=== PATIENT | female | born 1980 | race Caucasian/White ===

== ENCOUNTER 2019-06-27 16:21 | Emergency (ER) | payer SELFPAY ==
[2019-06-27 16:25] VITALS: TEMP 98.5; BMI 20.3
--- NOTE | 2019-06-27 16:32 | PDOC ---
Attending Attestation - Resident Resident Name: Sierra Rivera - ED Attending Attestation I have performed the following: I have examined & evaluated the patient, The case was reviewed & discussed with the resident, I agree w/resident's findings & plan, Exceptions are as noted - HPI HPI: 06/27/19 17:41 39-year-old 1 para 0 LMP early April, with positive home test, has bleeding and cramping since Tuesday. Prior was terminated electively. Bleeding was heavy on Tuesday but has slowed to a trickle. Pain persists. No other significant medical problems. Specifically, no history of abnormal blood clotting, DVT, PE. - Physicial Exam PE: 06/27/19 17:43 Physical exam reveals stable vital signs. Pelvic exam by Dr. Rivera with my supervision showed that the office was closed, there were no clots or products of conception in the office or the vaginal vault. There was tenderness in the left adnexa. - Medical Decision Making 06/27/19 17:45 Assessment: Threatened AB versus miscarriage versus ectopic . Plan: Pelvic ultrasound shows a 6-1/2-week viable intrauterine , with a large intrauterine fibroid, and a large left ovarian cyst. There was nothing that looked like an ectopic , according to the patient care technician. Full reading is pending. Quantitative hCG was sent for baseline. Patient was put at bedrest, with repeat beta hCG in 24 to 48 hours and urgent [facility] follow-up recommended. To return to the emergency room if bleeding becomes more severe, pain becomes more severe or persistent, or there is sign of blood loss such as pallor, lightheadedness, dizziness, chest pain, shortness of breath. TICKER WIRER on-call Dr. Steen was paged to inform him of the case and to try to ensure adequate follow-up. His nurse practitioner was reached and agreed to see the patient in a timely fashion. Fully ambulatory, in no severe pain or other distress at discharge with mother to follow-up as directed. Mother and patient agree repeat beta-hCG and to consult TICKER WIRER within 2 days. 06/27/19 18:09 06/28/19 07:04
[2019-06-27 17:00] LABS: EPITHELIAL CELLS MODERATE /hpf
--- NOTE | 2019-06-27 17:21 | PDOC ---
History of Present Illness - General Chief Complaint: Pain, Acute Stated Complaint: PELVIC/ABD PAIN Time Seen by Provider: 06/27/19 16:30 History Source: Patient Exam Limitations: No Limitations - History of Present Illness Initial Comments: Pt is a 39 yo F, (1 planned "many years ago"), with no significant PMH, who is presenting with vaginal bleeding and lower abdominal cramping pain x6 days. Pt states the bleeding contains passage of large clots, but is only using 2-3 pads per day. Pt states the pain is cramping, feels similar to her menstrual periods, and is constant throughout the day. Pt had a positive home test 06/15, but has not established EDUCATION TECHNICIAN care yet. Pt denies any fevers/chills, headache, light-headedness, vision changes, syncope, chest pain, palpitations, SOB, nausea/vomiting, urinary symptoms, diarrhea/ constipation, or leg swelling. Allergies: NKDA OB: none LMP: 05/14 Social: Pt denies any cigarette, alcohol, or drug use. Pt denies any recent travel or sick contacts. Surgical: no relevant history. Family: no relevant history. 06/28/19 08:56 Past History - Travel Traveled outside of the country in the last 30 days: No Close contact w/someone who was outside of country & ill: No - Past Medical History Allergies/Adverse Reactions: Allergies Allergy/AdvReac Type Severity Reaction Status Date / Time No Known Allergies Allergy Verified 06/27/19 16:27 Home Medications: Ambulatory Orders Sertraline HCl [Zoloft] 0 mg PO DAILY 06/27/19 COPD: No - Psycho Social/Smoking Cessation Hx Smoking History: Never smoked Hx Alcohol Use: Yes (OCASIONAL) Drug/Substance Use Hx: No Review of Systems - Review of Systems Able to Perform ROS?: Yes Is the patient limited British proficient: No Constitutional: Yes: Weight Stable. No: Chills, Diaphoresis, Fever, Loss of Appetite, Malaise, Weakness HEENTM: No: Recent change in vision, Nose Congestion, Throat Pain, Throat Swelling, Difficulty Swallowing Respiratory: No: Cough, Orthopnea, Shortness of Breath Cardiac (ROS): No: Chest Pain, Edema, Irregular Heart Rate, Lightheadedness, Palpitations, Syncope, Chest Tightness ABD/GI: Yes: Abdominal cramping. No: Abdominal Distended, Constipated, Diarrhea , Nausea, Poor Appetite, Poor Fluid Intake, Vomiting : No: Burning, Dysuria, Frequency, Pain, Urgency Musculoskeletal: No: Back Pain, Muscle Pain, Muscle Weakness Integumentary: No: Flushing, Rash Neurological: No: Headache, Weakness, Unsteady Gait, Dizziness Psychiatric: No: Sleep Pattern Change, Change in Appetite Endocrine: No: Increased Urine, Change in Weight Hematologic/Lymphatic: No: Anemia, Blood Clots, Easy Bleeding, Easy Bruising All Other Systems: Reviewed and Negative *Physical Exam - Vital Signs Last Vital Signs Temp Pulse Resp BP Pulse Ox 98.5 F 70 17 110/73 100 06/27/19 16:22 06/27/19 16:22 06/27/19 16:22 06/27/19 16:22 06/27/19 16:22 - Physical Exam Comments: Vitals stable, pt afebrile. Pt in NAD, normal body habitus. Ambulatory into ED. Pt alert and oriented x3. commercial cleaner generally intact, muscular strength and sensation intact. No midline spinal tenderness, step-offs, or crepitus. Head normocephalic, atraumatic. Eyes PERRLA, EOMI. Oropharynx without erythema or exudates, no LAD b/l. No nasal congestion. Hearing intact. Clear heart sounds, S1/S2, no JVD, b/l pedal edema, or heart murmur. Clear lung sounds, no respiratory distress, wheezes, crackles, or accessory muscle use. Diffuse lower abdominal TTP with guarding, worst in LLQ, with no rebound. Abdomen soft, non-distended, and with normoactive bowel sounds. Dark blood in vaginal canal, no discharge or foul odor. Cervix open with palpation. No CMT or adnexal TTP. Skin without jaundice or rash. 06/28/19 09:01 ED Treatment Course - LABORATORY CBC & Chemistry Diagram: 06/27/19 17:10 - ADDITIONAL ORDERS Additional order review: Laboratory Results 06/27/19 06/27/19 16:28 16:20 Urine Color Yellow Urine Appearance Clear Urine pH 7.0 Urine Protein Negative Urine Glucose (UA) Negative Urine Ketones Negative Urine Blood 3+ H Urine Nitrite Negative Urine Bilirubin Negative Urine Urobilinogen 0.2 Ur Leukocyte Esterase Negative Urine RBC 20-40 Urine WBC 2-5 Ur Transition Epith Cell Moderate Urine Bacteria Rare Urine HCG, Qual Positive Medical Decision Making - Medical Decision Making 39 yo F, with positive home test, now with vaginal bleeding. Will evaluate with labs to determine anema, need for rhogham. Will obtain transvaginal US to eval for ectopic vs ovarian torsion/cysts or fibroids. CBC unremarkable O+, no need for rhogam. POC preg positive Transvaginal US showed large fibroid; IUP at 6 weeks, HR 120. Beta-hcg pending, will have OB follow and do repeat US in 48 hours. Pt discussed with on-call OB Dr. Steen. Pt can see OB within 48 hours and will call for appointment tomorrow. Pt vitals stable before d/c with minimal bleeding. 06/28/19 09:02 Discharge - Discharge Information Problems reviewed: Yes Clinical Impression/Diagnosis: Threatened Uterine fibroid Qualifiers: Uterine leiomyoma location: unspecified location Qualified Code(s): D25.9 - Leiomyoma of uterus, unspecified Condition: Stable Disposition: HOME - Admission No - Follow up/Referral Referrals: Clayton Mercer MD [Staff Physician] - Lizy Steen MD [Staff Physician] - - Patient Discharge Instructions Patient Printed Discharge Instructions: DI for Threatened , DI for Uterine Fibroids Additional Instructions: You were seen in the ER today for bleeding during . The results of your labs and imaging today showed a large uterine fibroid, with a implanted in the uterus. Please follow-up with your OB-[facility] INSTALL[facility] TOMORROW MORNING to discuss your visit and make sure your symptoms have improved. Please return to the ER if you have any worsening pain, bleeding that soaks through 1-2 pads per hour, development of fevers or chills, loss of consciousness, inability to tolerate food or fluids, or any other concerns. You can take tylenol 6 hours as needed for pain or cramping. - Post Discharge Activity
[2019-06-27 17:25] LABS: HEMATOCRIT 35.5 % (32.4-45.2); HEMOGLOBIN 11.5 GM/dl (10.7-15.3); MCH 24.6 pg (25.7-33.7); MCHC 32.4 g/dl (32.0-36.0); MEAN CELL VOLUME 75.9 fl (80-96); MEAN PLT VOLUME 9.2 fl (7.5-11.1); PLATELET COUNT 359 K/MM3 (134-434); RBC 4.67 M/mm3 (3.60-5.2); RDW 13.5 % (11.6-15.6); WHITE BLOOD COUNT 10.7 K/mm3 (4.0-10.8)
[2019-06-27 19:14] VITALS: BP 121/77; PULSE 75
== END 2019-06-27 19:14 | disposition home or self-care (01) ==
LOC: FER 16:21
DX: O20.0 Threatened abortion (principal); Z3A.01 Less than 8 weeks gestation of pregnancy; D25.9 Leiomyoma of uterus, unspecified
CPT/HCPCS: 36415; 76801-TC; 81003; 81015; 84702; 84703; 85027; 86850; 86900; 86901; 99282-25